=== PATIENT | male | born 1985 | race Caucasian/White ===

== ENCOUNTER 2023-11-07 14:16 | Emergency (ER) | payer OTHER, SELFPAY ==
[2023-11-07 14:23] VITALS: BP 157/105
[2023-11-07] MEDS: TORADOL 30 MG IV (15:52)
[2023-11-07] MEDS: PEPCID 20 MG IV (15:52)
[2023-11-07 16:03] LABS: Urine Albumin Negative (Neg - Trace); Urine Bilirubin Negative (Negative); Urine Character Clear (Clear); Urine Color Yellow; Urine Glucose Negative (Negative); Urine Ketone Negative (Negative); Urine Leukocyte Negative (Negative); Urine Nitrite Negative (Negative); Urine Occult Blood 2+ (Negative); Urine Specific Gravity 1.015 (<1.030); Urine Urobilinogen Negative (Neg - 1+)
[2023-11-07 16:04] LABS: % Basophils 0.3 % (0-2); % Immature Granulocytes 0.1 % (0-0.5); % Monocytes 6.6 % (1.7-9.3); Absolute Eosinophils 0.2 10^3/uL (0-0.7); Absolute Lymphocytes 2.4 10^3/uL (1.2-3.4); Absolute Monocytes 0.5 10^3/uL (0.1-0.6); Absolute Neutrophils 4.5 10^3/uL (1.4-6.5); Hematocrit 43.7 % (39.0-52.0); Hemoglobin 14.8 g/dL (13.0-18.0); Mean Corp Hgb Conc. 33.9 g/dL (33.0-37.0); Mean Corpuscular Volume 88.6 fL (80.0-94.0); Mean Platelet Volume 9.8 fL (7.4-10.4); Nucleated Red Blood Cells % 0 % (-); Platelet Count 215 10^3/uL (130-400); Red Blood Cell Count 4.93 10^6/uL (4.70-6.10); Red Cell Dist. Width 12.3 % (11.5-14.5); White Blood Cell Count 7.6 10^3/uL (4.8-10.8)
[2023-11-07 16:10] LABS: Urine Bacteria Few (Negative); Urine White Cell 0-2 /HPF (0-5)
--- NOTE | 2023-11-07 16:11 | ED.GENMED ---
History of Present Illness
General
Chief Complaint: Abdominal Symptoms
Source: patient
Exam Limitations: none
Time Seen by Provider: 11/07/23 14:44
Nursing documentation reviewed up to this point in time: agreed with
Travel History
Have you had any contact with someone who has COVID-19?: No
Do you have any symptoms of coronavirus? Fever > 100 degrees, chills, cough, shortness of breath, sore throat, loss of taste or smell, muscle aches, or headache?: No
History of Present Illness
History of Present Illness:
pt is a 38 y/o M with h/o kidney stone onc ein the past
here with left sided loewr abd pain that started a few days ago, he thought maybe it was acid reflux because it seemed to be worse after eating. but then he started having more intermittent sharp pains that were pretty intense today. he has not had
any radiation of pain to the back
normal bm, no constipation or diarrhea
no dysuria but feels his stream is split and not normal
he has not had any fever, chills, vomiting, diarrhea.
nothing taken for pain
drinks alcohol socially, vapes nicotine
Past History
Past History
ED Past Medical History: Other (Kidney stone ) and Other (cerebral palsy with mild right sided weakness.); Negative HTN, Hypercholesterolemia, IDDM or NIDDM
ED Past Surgical History: None
Patient has exhibited threatening behavior?: Yes
Date of threatening behavior? (updated with each occurrence): 05/21/19 (Patient became explosive during exam. He demanded MRI and became angry when this was not done. He was seen by Dr. Dye at his request. He became angry with her also however
she was able to talk him down. Security outside of room. He did eventualy agree to anabela wrap and crutches. Discharged home without further incident.)
Social History
Tobacco: Smoker
Alcohol: Occasional
Drug: None
Personal: Single
Living: with family
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
Family History
Family History: Other (Noncontributory)
Review of Systems
Review of Systems
Allergies reviewed?: Yes
All Other Systems: Not applicable
Phy Exam
Physical Exam
Physical Exam:
GENERAL: Alert, comfortable
Neck: supple
CARDIAC: Regular rate and rhythm .
LUNGS: Clear breath sounds bilaterally, no acute respiratory distress, no wheezes/rales/rhonchi
ABDOMEN: Soft, elevated BMI; normal bowel sounds, nondistended, no reproducible tendreness;, no guarding, no rebound, neg fisher's
back: no cva tendernesss
NEUROLOGICAL: Alert and oriented, no focal neuro deficits
SKIN: Warm and dry, skin intact.
PSYCH: Normal and appropriate interaction.
Course
Orders/Labs/Results
Orders:
Orders
11/07/23 15:10
CT Abd/pel Without Iv Or Oral Urgent
Comment:
Reason For Exam: L abd pain, h/o stones
Famotidine [Pepcid] 20 mg IV NOW STA
Ketorolac [Toradol] 30 mg IV NOW STA
11/07/23 15:44
Complete Blood Count/With Diff Urgent
Comprehensive Metabolic Panel Urgent
Lipase Urgent
11/07/23 15:48
Urinalysis Reflex To Culture Urgent
Date Specimen was Collected: 11/07/23
Time Specimen was Collected: 15:47
Urine Microscopic Reflex Cult Urgent
Urine Culture Urgent
SURAJ Source: U
Specimen Description:
Date Specimen was Collected: 11/07/23
Time Specimen was Collected: 15:47
Comment: ADD ON
11/07/23 16:54
Acetaminophen [Tylenol] 650 mg PO NOW STA
11/07/23 17:07
Add On - Microbiology Urgent
Tests Added?: URINE CULTURE
Abnormal Lab Results
11/07/23 11/07/23
15:44 15:48
ALT 51 H U/L
(0-50)
Ur Occult Blood Reflex 2+ A
(Negative)
Urine RBC 7-10 A /HPF
(0-2)
Urine Bacteria (Reflex) Few A
(Negative)
11/07/23 15:44
11/07/23 15:44
Vital Signs
Initial and Last Documented VS:
Initial Vital Signs
Temp Pulse Resp BP Pulse Ox
98.0 F 77 20 157/105 99
11/07/23 14:23 11/07/23 14:23 11/07/23 14:23 11/07/23 14:23 11/07/23 14:23
Last Documented Vital Signs
Temp Pulse Resp BP Pulse Ox
98.0 F 77 18 111/75 98
11/07/23 14:23 11/07/23 17:27 11/07/23 17:27 11/07/23 17:27 11/07/23 17:27
MDM/Problems Addressed
Differential Diagnosis Includes:
nephrolithaisis, gastritis, colitis, constipation
MDM/Problems Addressed:
38-year-old male with a history of a kidney stone previously presents with left sided lower abdominal pain that was mild but got worse today with intermittent sharp pains. He thinks it could be similar to his previous kidney stone but he is not
sure. He has not had any nausea vomiting diarrhea. It started off feeling like maybe heartburn symptoms but has always been in the left lower/left flank region. He had not tried anything for pain today. On exam he had no significant tenderness,
no guarding or rebound. There is no CVA tenderness. He was very comfortable appearing. He does have mild CP but was able to communicate without difficulty. His workup shows some microscopic hematuria with no significant evidence of UTI. His
white count is normal, creatinine normal, LFTs negative. His CT was negative for any obvious obstructing uropathy or any other identifiable causes for the pain. After Toradol he still feels the pain.
At this point I feel like the workup is complete, he should try Tylenol additionally for pain. He will need follow-up to ensure that the hematuria resolves. He could have potentially passed a small stone
But he continues to have symptoms. It is unclear the cause of his pain at this time but will discharge with close follow-up and return precautions
*Critical Care Note
Total Time (30-74mins, 75-104mins- exclusive of procedures): Not Applicable
ED Attending Note
-
Portions of this chart may have been created with voice recognition software.� Occasional wrong word or��sound alike� substitutions may have occurred due to the inherent limitations of voice recognition software.
Discharge Plan
Departure
Patient Disposition: Home (Routine Discharge)
Date of Disposition: 11/07/23
Time of Disposition: 17:07
Patient with high blood pressure during this ER visit?: No
Condition: Fair
Covid-19: Not Applicable
Discharge Problem:
Abdominal pain, Hematuria, microscopic
Instructions: Blood in the Urine (Hematuria), Adult (DC), Abdominal Pain
Prescriptions:
No Action
docusate sodium 100 MG capsule
100 mg PO BID Qty: 60 0RF
omeprazole 20 MG capsule,delayed release(DR/EC)
20 mg PO DAILY Qty: 30 0RF
amoxicillin 500 mg capsule
500 mg PO BID 7 Days Qty: 14 0RF
lidocaine HCl [Lidocaine Viscous] 2 % solution
15 ml mucous membrane Q6H PRN (Reason: pain) Qty: 300 0RF
Referrals:
NONE,* [Family Provider] -
Activity Restrictions/Additional Instructions:
YOU HAD A TRACE AMOUNT OF BLOOD IN YOUR URINE BUT NO SIGNS OF INFECTION, WE WILL SEND A URINE CULTURE TO BE SURE
YOUR BLOOD WORK WAS REASSRUING AND YOUR CAT SCAN DID NOT SHOW ANY CAUSE FOR YOUR PAIN IDENTIFIED TODAY.
THERE WAS NO OBVIOUS KIDNEY STONE
YOU SHOULD TRY TYLENOL 3 TIMES A DAY NEEDED FOR PAIN
FOLLOW UP WITHYOUR DOCTOR THIS WEEK. MAKE SURE TO HAVE A REPEAT URINE TO BE SURE THE BLOOD CLEARS.
RETURN FOR: SEVERE PAIN, RASH, VOMITING, DIARRHEA, WORSENING URINATION PROBLEMS OR ANY CONCERNS.
SINCE THE PAIN WAS GETTING WORSE WITH EATING, TRY THE NEXIUM YOU HAVE AT HOME.
RETURN FOR ANY CONCERNS.
Interventions
Interventions:
*Risk Screen - Suicide Last Done: 11/07/23 15:45
*General Assessment Last Done: 11/07/23 15:45
*Neglect/Abuse Screening Last Done: 11/07/23 15:45
ED- Fall Risk Assessment Last Done: 11/07/23 17:29
*ED COVID-19 Vaccine History Last Done: 11/07/23 15:45
*Nursing Disposition Last Done: 11/07/23 17:29
LB-Bdswcn-Vrwongkqyf Assessment Last Done: 11/07/23 15:45
Discharge Date and Time
Discharge Date/Time: 11/07/23 17:35
[2023-11-07 16:27] LABS: ALT (SGPT) 51 U/L (0-50); AST (SGOT) 38 U/L (17-59); Albumin 4.1 g/dl (3.5-5.0); Alkaline Phosphatase 91 U/L (38-126); Blood Urea Nitrogen 18 mg/dl (9-20); Calcium 9.1 mg/dl (8.4-10.2); Carbon Dioxide 26 mmol/L (22-30); Chloride 104 mmol/L (98-107); Glucose 94 mg/dl (70-99); Lipase 42 U/L (23-300); Potassium 4.6 mmol/L (3.5-5.1); Sodium 135 mmol/L (135-145); Total Bilirubin 0.6 mg/dl (0.2-1.3); Total Protein 7.1 g/dl (6.3-8.2); eGFR > 60.00
[2023-11-07] MEDS: TYLENOL 650 MG PO (17:00)
[2023-11-07 17:27] VITALS: BP 111/75
== END 2023-11-07 17:35 | disposition home or self-care (01) ==
LOC: EMR 14:16
PROVIDERS: Physician Assistant; EMERGENCY PHYSICIAN Emergency Medicine
DX: R10.30 Lower abdominal pain, unspecified (principal); R31.9 Hematuria, unspecified; F17.200 Nicotine dependence, unspecified, uncomplicated; Z87.442 Personal history of urinary calculi
CPT/HCPCS: 99284; 96374; 96375; 74176; 80053; 81003; 81015; 83690; 85025; 87086

== ENCOUNTER 2025-06-16 13:55 | Emergency (ER) | payer SELFPAY ==
[2025-06-16 14:01] VITALS: BP 132/86
[2025-06-16 14:19] LABS: Hematocrit 42.8 % (39.0-52.0); Hemoglobin 15.0 g/dL (13.0-18.0); Mean Corp Hgb Conc. 35.0 g/dL (33.0-37.0); Mean Corpuscular Volume 82.9 fL (80.0-94.0); Nucleated Red Blood Cells % 0 % (-); Platelet Count 216 10^3/uL (130-400); Red Cell Dist. Width 12.6 % (11.5-14.5)
[2025-06-16 14:32] LABS: COVID-19 Antigen Positive (Negative)
[2025-06-16 14:38] LABS: ALT (SGPT) 42 U/L (0-50); AST (SGOT) 39 U/L (17-59); Albumin 4.3 g/dl (3.5-5.0); Alkaline Phosphatase 78 U/L (38-126); Blood Urea Nitrogen 8 mg/dl (9-20); Calcium 8.8 mg/dl (8.4-10.2); Carbon Dioxide 21 mmol/L (22-30); Chloride 103 mmol/L (98-107); Glucose 105 mg/dl (70-99); Lipase 38 U/L (23-300); Potassium 3.8 mmol/L (3.5-5.1); Sodium 133 mmol/L (135-145); Total Protein 7.8 g/dl (6.3-8.2); eGFR > 60.00
[2025-06-16 16:25] LABS: Urine Character Clear (Clear)
[2025-06-16 16:38] LABS: Urine Red Blood Cell 21-25 /HPF (0-2); Urine White Cell 0-2 /HPF (0-5)
--- NOTE | 2025-06-16 17:35 | ED.GENMED ---
History of Present Illness
General
Chief Complaint: Cold/Flu/URI Symptoms
Source: patient
Exam Limitations: none
Time Seen by Provider: 06/16/25 17:33
Nursing documentation reviewed up to this point in time: agreed with
History of Present Illness
History of Present Illness:
The patient is a pleasant 40-year-old man who reports nausea and vomiting for about 4 hours that occurred several days ago and is now resolved. Patient reports that after his nausea and vomiting resolved, that he experienced chills, fever,
generalized weakness and cough. Patient denies chest pain and shortness of breath. Patient reports that he also experienced lightheadedness and dizziness. He denies vision changes. Patient reports he is able to walk around steadily. He reports
he has been able to eat and drink well.
Past History
Past History
ED Past Medical History: Other (Kidney stone ) and Other (cerebral palsy with mild right sided weakness.)
ED Past Surgical History: None
Patient has exhibited threatening behavior?: Yes
Date of threatening behavior? (updated with each occurrence): 05/21/19 (Patient became explosive during exam. He demanded MRI and became angry when this was not done. He was seen by Dr. Dye at his request. He became angry with her also however
she was able to talk him down. Security outside of room. He did eventualy agree to anabela wrap and crutches. Discharged home without further incident.)
Social History
Tobacco: Smoker
Alcohol: Occasional
Drug: None
Personal: Other
Living: other
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
Family History
Family History: Other (Noncontributory)
Review of Systems
Review of Systems
Allergies reviewed?: Yes
All Other Systems: ROS reviewed and negative except as documented in HPI and ROS
Constitutional: Reports fever, fatigue and chills
EENT: Reports runny nose and other (Sinus pressure)
Respiratory: Reports cough
Cardiac: Reports no symptoms
ABD/GI: Reports nausea, vomiting and diarrhea
: Reports no symptoms
Musculoskeletal: Reports muscle pain
Skin: Reports no symptoms
Neurological: Reports no symptoms
Endocrine: Reports no symptoms
Hematologic/Lymphatic: Reports no symptoms
Psychiatric: Reports no symptoms
Phy Exam
Physical Exam
Physical Exam:
Physical Exam
General: no apparent distress, not acutely ill, smiling, conversational, nontoxic
Neck: supple. no meningeal signs. normal psoterior pharynx
Heart: s1/s2 regular rate and rhythm, no murmur. equal radial pulses.
Lungs: no acute respiratory distress. clear bilaterally
Abdomen: normal bowel sounds. not tender. no CVAT
Neuro: alert and oriented. no focal neurological deficits. Extraocular muscles intact. 5 out of 5 strength in all extremities without drift. Normal steady gait.
Skin: no rash
Psychiatric: well kept. interactive and cooperative
Extremities: no edema. no calf tenderness. negative homans. good distal pulses
Course
Orders/Labs/Results
Orders:
Orders
06/16/25 14:10
COVID-19 Antigen Urgent
Source: Nasal Swab
Complete Blood Count/With Diff Urgent
Comprehensive Metabolic Panel Urgent
Lipase Urgent
INF RAPID [Influenza A+B Rapid Molecular] Urgent
SURAJ Source: Nasal Swab
Specimen Description:
06/16/25 15:55
Urinalysis Reflex To Culture Urgent
Date Specimen was Collected: 06/16/25
Time Specimen was Collected: 14:04
Urine Microscopic Reflex Cult Urgent
Urine Culture Urgent
SURAJ Source: U
Specimen Description:
Date Specimen was Collected: 06/16/25
Time Specimen was Collected: 14:04
06/16/25 18:03
Electrocardiogram (*1) Urgent
Reason for Study: Tachycardia
EKG- Treatment ONCE
Abnormal Lab Results
06/16/25 06/16/25
14:10 15:55
Absolute Monos (auto) 0.8 H 10^3/uL
(0.1-0.6)
Monocytes % 12.2 H %
(1.7-9.3)
Sodium 133 L mmol/L
(135-145)
Carbon Dioxide 21 L mmol/L
(22-30)
BUN 8 L mg/dl
(9-20)
Glucose 105 H mg/dl
(70-99)
Urine Ketones 3+ A
(Negative)
Ur Occult Blood Reflex 4+ A
(Negative)
Urine RBC 21-25 A /HPF
(0-2)
Urine Bacteria (Reflex) Many A
(Negative)
Urine Albumin (Reflex) 1+ A
(Neg - Trace)
SARS-CoV-2 Antigen Positive A
(Negative)
06/16/25 14:10
06/16/25 14:10
Vital Signs
Initial and Last Documented VS:
Initial Vital Signs
Temp Pulse Resp BP Pulse Ox
98.6 F 109 20 132/86 96
06/16/25 14:01 06/16/25 14:01 06/16/25 14:01 06/16/25 14:01 06/16/25 14:01
Last Documented Vital Signs
Temp Pulse Resp BP Pulse Ox
98.6 F 107 20 130/83 97
06/16/25 14:01 06/16/25 18:55 06/16/25 18:55 06/16/25 18:55 06/16/25 18:55
MDM/Problems Addressed
Differential Diagnosis Includes:
Acute dehydration, acute viral illness such as COVID, acute positional vertigo
MDM/Problems Addressed:
Patient presents with acute fever, chills, body aches and dizziness
*Pulse Oximetry
SaO2: 96
Oxygen Mode of Delivery: Room air
Patient hypoxic: no
Comment: 96% on room air
*EKG
Interpreted by ED Provider?: Yes
Interpretation: normal
Comparison EKG: no changes
Rate: normal
Rhythm: sinus
Sterling: normal axis
Interval: normal interval
QRS Pattern: normal QRS
Ischemia: no ischemia
*Assembler Dc Field Ring Interpretation
Rate: Assembler Dc Field Ring- N/A
*Critical Care Note
Total Time (30-74mins, 75-104mins- exclusive of procedures): Not Applicable
Data Reviewed
Review of Other/Old Records Reveals: Labs (Normal blood work 2023)
Source: patient
Patient Management
Social determinants of health affecting care: Living situation and Strong social support
Escalation/DeEscalation of care consider admission/obs:
Patient has a normal neurological exam is walking around steadily. He is able to eat and drink and stay hydrated on his own. There is no sign of stroke. EKG shows normal sinus rhythm with heart rate in the 90s.
ED Attending Note
-
Portions of this chart may have been created with voice recognition software.� Occasional wrong word or��sound alike� substitutions may have occurred due to the inherent limitations of voice recognition software.
Discharge Plan
Departure
Patient Disposition: Home (Routine Discharge)
Date of Disposition: 06/16/25
Time of Disposition: 18:39
Patient with high blood pressure during this ER visit?: Yes
Condition: Good
Covid-19: Not Applicable
Discharge Problem:
COVID-19
Instructions: COVID-19 in adults - ED (DC), BLOOD PRESSURE
Prescriptions:
No Action
docusate sodium 100 MG capsule
100 mg PO BID Qty: 60 0RF
omeprazole 20 MG capsule,delayed release(DR/EC)
20 mg PO DAILY Qty: 30 0RF
amoxicillin 500 mg capsule
500 mg PO BID 7 Days Qty: 14 0RF
lidocaine HCl [Lidocaine Viscous] 2 % solution
15 ml mucous membrane Q6H PRN (Reason: pain) Qty: 300 0RF
Referrals:
NONE,* [Family Provider, Internal Medicine]
Activity Restrictions/Additional Instructions:
Continue to keep yourself hydrated. The electrocardiogram (EKG) of your heart looks normal.
Please return with any episodes of passing out, difficulty speaking, or vision changes.
Interventions
Interventions:
*Risk Screen - Suicide Last Done: 06/16/25 14:01
*Neglect/Abuse Screening Last Done: 06/16/25 14:01
*Nursing Disposition Last Done: 06/16/25 18:58
ED- Pulmonary Assessment Last Done: 06/16/25 17:30
Discharge Date and Time
Discharge Date/Time: 06/16/25 18:59
Print Language: URUGUAYAN
[2025-06-16 18:55] VITALS: BP 130/83
== END 2025-06-16 18:59 | disposition home or self-care (01) ==
LOC: EMR 13:55
PROVIDERS: Emergency Medicine; EMERGENCY PHYSICIAN Emergency Medicine
DX: U07.1 COVID-19 (principal); G80.8 Other cerebral palsy; F17.200 Nicotine dependence, unspecified, uncomplicated
CPT/HCPCS: 99284; 80053; 81003; 81015; 83690; 85025; 87086; 87502; 87811; 93005